=== PATIENT | female | born 1955 | race Caucasian/White ===

== ENCOUNTER 2018-06-23 12:21 | Emergency (ER) | payer MEDICARE, OTHER ==
[~2018-06-23] VITALS: Wt 75.0 kg
[2018-06-23 12:23] VITALS: BP 150/79; PULSE 87; RESP 18
[2018-06-23] MEDS ORDERED: HYDROCODONE/APAP (5/325) TAB PO ONE (13:00)
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
[2018-06-23] MEDS ORDERED: ACET500C5 PO (15:07)
== END 2018-06-23 15:23 | disposition home or self-care (01) ==
LOC: FTE 12:21
DX: S06.0X0A Concussion without loss of consciousness, initial encounter (principal); V49.40XA Driver injured in collision with unspecified motor vehicles in traffic accident, initial encounter
CPT/HCPCS: 36415; 70450; 80048; 85025; 85610; 85730